=== PATIENT | female | born 1965 | race American Indian/Alaskan Native ===

== ENCOUNTER 2016-07-16 15:37 | Outpatient (CLI) | payer OTHER | END 2016-07-16 15:38 | disposition home or self-care (01) | LOC: LABHHL 15:37 → LAB 15:37 | PROVIDERS: ATTEND Specialist | DX: N61.1 Abscess of the breast and nipple (principal) | CPT/HCPCS: 87116 ==

== ENCOUNTER 2017-05-01 13:44 | Outpatient (CLI) | payer OTHER | END 2017-05-01 13:45 | disposition home or self-care (01) | LOC: LABHHL 13:44 | PROVIDERS: ATTEND Surgery | DX: N61.1 Abscess of the breast and nipple (principal) | CPT/HCPCS: 87075; 87116 ==

== ENCOUNTER 2017-05-05 09:00 | Outpatient (CLI) | payer OTHER | END 2017-05-05 09:01 | disposition home or self-care (01) | LOC: LABHHL 09:00 | PROVIDERS: ATTEND Surgery | DX: N61.1 Abscess of the breast and nipple (principal) | CPT/HCPCS: 87075; 87116 ==

== ENCOUNTER 2017-09-23 09:35 | Outpatient (CLI) | payer OTHER | END 2017-09-23 09:36 | disposition home or self-care (01) | LOC: LABHHL 09:35 | PROVIDERS: ATTEND Surgery | DX: N64.89 Other specified disorders of breast (principal); E66.9 Obesity, unspecified; Z87.891 Personal history of nicotine dependence | CPT/HCPCS: 87075; 87116 ==

== ENCOUNTER 2020-05-23 09:50 | Outpatient (CLI) | payer OTHER ==
--- NOTE | 2020-05-23 10:54 | Mammography Report ---
DIGITAL SCREENING MAMMOGRAM WITH CAD, 05/23/2020 CLINICAL INFORMATION / INDICATION: Routine screening mammography. SCREENING MAMMO TECHNIQUE: Digital bilateral 2D mammography was obtained in the craniocaudal and mediolateral obliqu e projections. This examination was interpreted with the benefit of Computer-Aided Detection analysis . COMPARISON: 05/12/2019, 10/22/2017, 04/25/2016 FINDINGS: Breast Density: The breasts are almost entirely fatty. No dominant mass, suspicious calcifications, or architectural distortion in either breast. Postsurgical changes are again noted in the right breast. IMPRESSION: No mammographic evidence of malignancy. Follow up recommendation: Routine yearly BI-RADS Category 2: Benign. A "normal" or negative report should not discourage follow up or biopsy of a clinically significant f inding. A written summary of these findings will be mailed to the patient. The patient will be entered into a mammography reporting system which will generate a reminder letter for the patient's next appointmen t at the appropriate interval. The [employer] recommends yearly mammograms starting at age 40 and continuing as l jorge as a woman is in good health. Breast MRI is recommended for women with an approximate 20-25% or greater lifetime risk of breast cancer, including women with a strong family history of breast or ova rodriguez cancer or who have been treated for Hodgkin's disease. Signer Name: Milly Bob MD Signed: 05/23/2020 10:49 AM Workstation Name: [id number]
== END 2020-05-23 09:51 | disposition home or self-care (01) ==
LOC: SPVWC 09:50
PROVIDERS: ATTEND Surgery
DX: Z12.31 Encounter for screening mammogram for malignant neoplasm of breast (principal)
CPT/HCPCS: 77067

== ENCOUNTER 2021-10-22 11:19 | Outpatient (CLI) | payer OTHER ==
--- NOTE | 2021-10-24 10:33 | Mammography Report ---
DIGITAL SCREENING MAMMOGRAM WITH CAD, 10/22/2021 CLINICAL INFORMATION / INDICATION: Routine screening mammography. TECHNIQUE: Digital bilateral 2D mammography was obtained in the craniocaudal and mediolateral obliqu e projections. This examination was interpreted with the benefit of Computer-Aided Detection analysis . COMPARISON: Prior mammogram 05/23/2020 and 05/12/2019 FINDINGS: Breast Density: The breasts are almost entirely fatty. No dominant mass, suspicious calcifications, or architectural distortion in either breast. There is stable benign postsurgical change in the anterior subareolar right breast. There has been no significant change compared with the prior examinations. IMPRESSION: No mammographic evidence of malignancy. Follow up recommendation: Routine yearly screening mammogram. BI-RADS Category 2: BENIGN. A "normal" or negative report should not discourage follow up or biopsy of a clinically significant f inding. A written summary of these findings will be mailed to the patient. The patient will be entered into a mammography reporting system which will generate a reminder letter for the patient's next appointmen t at the appropriate interval. The [employer] recommends yearly mammograms starting at age 40 and continuing as l jorge as a woman is in good health. Breast MRI is recommended for women with an approximate 20-25% or greater lifetime risk of breast cancer, including women with a strong family history of breast or ova rodriguez cancer or who have been treated for Hodgkin's disease. Signer Name: Gayla Crabtree MD Signed: 10/24/2021 10:28 AM Workstation Name: [id number]
== END 2021-10-22 11:20 | disposition home or self-care (01) ==
LOC: SPVWC 11:19
PROVIDERS: ATTEND Surgery
DX: Z12.31 Encounter for screening mammogram for malignant neoplasm of breast (principal)
CPT/HCPCS: 77067